=== PATIENT | male | born 1990 | race Caucasian/White ===

== ENCOUNTER 2022-02-28 13:05 | Emergency (ER) | payer OTHER, SELFPAY ==
[2022-02-28 13:40] VITALS: BP 149/87; PULSE 100; RESP 18; TEMP 37.1; O2SAT 99
--- NOTE | 2022-03-01 16:38 | ED.GENADULT ---
HPI - General Adult General Chief complaint: Back Pain/Injury Stated complaint: low back pain History of Present Illness HPI narrative: Patient is a 32-year-old male who presents to the [facility] via POV for evaluation of left mid back pain that is radiating to left testicle that began after bending over lifting 25 pound objects while at work on Wednesday, February 23, 2022. Ibuprofen and rest provides minimal relief. Pain worsens with bending over. Related Data Allergies Allergy/AdvReac Type Severity Reaction Status Date / Time No Known Allergies Allergy Verified 02/28/22 15:27 Review of Systems Review of Systems: Denies injury. Pertinent negatives fever, chills, sweats, change in appetite, poor p.o. intake, malaise, headache, stiffness, spasms, abdominal pain, nausea, vomiting, diarrhea, constipation, dysuria, urinary frequency/urgency, hematuria, urinary retention, flank pain, skin color changes, penile discharge, penile ulcers, prostate problems, bladder/bowel incontinence, skin color changes, deformity, numbness, tingling, loss of sensation, decreased ROM, difficulty with ambulation/coordination, chest pain, heart palpitations/murmurs, and sob. [facility] Past Medical History Medical History Patient denies significant medical history Traumatic hematoma of testicle Social History Social History Smoking status: Never smoker Comments I have reviewed and agree with the patient's past medical, surgical, social, and family hx as documented by the RN. There is no relevant family history pertinent to the presenting complaint. Exam Narrative: GENERAL: Well-appearing, well-nourished, and in no acute distress. HEAD: Normocephalic, atraumatic. NECK: Supple. No lymphadenopathy or nuchal rigidity. No evidence of pain, decreased ROM, or deformity. CHEST: Lung sounds are clear to auscultation in bilateral lung mccarthy. No respiratory distress. HEART: Regular rate and rhythm. No murmur heard. Normal peripheral pulses. ABDOMEN: Soft, nontender, nondistended, normal active bowel sounds in all quadrants. No guarding. No rebound tenderness. No pulsatile or palpable abdominal mass(es). No CVAT : Left testicle is moderately edematous and mildly painful. EXTREMITIES: Normal range of motion. No edema. BACK: Full ROM. Mild swelling and pain noted to left mid back. No evidence of deformity, mass, spinal tenderness, or swelling. Bilateral SLR tests negative. Normal gait. SKIN: Warm, dry, no rash. No skin color changes. Excellent turgor. NEURO: No focal deficits. Alert and oriented x3. Course Course Emergency Course: The patient/guardian displays good decision-making capability and, despite a detailed discussion of alternatives, benefits, risks, and consequences and agrees to a higher level of care to ER although refuses EMS transport to ER. Will transport via POV. Level of Care: Express Care Visit Vital Signs Vital signs: Vital Signs Temperature 98.8 F 02/28/22 13:40 Pulse Rate 100 02/28/22 13:40 Respiratory Rate 18 02/28/22 13:40 Blood Pressure 149/87 H 02/28/22 13:40 Pulse Oximetry 99 02/28/22 13:40 Oxygen Delivery Room Air 02/28/22 13:40 Temperature 98.8 F 02/28/22 13:40 Pulse Rate 100 02/28/22 13:40 Respiratory Rate 18 02/28/22 13:40 Blood Pressure 149/87 H 02/28/22 13:40 Pulse Oximetry 99 02/28/22 13:40 Oxygen Delivery Room Air 02/28/22 13:40 Transfer Transfered to: [place] Transportation: Other (Privately owned vehicle) Transfer rationale: Higher level care?rule out testicular trauma Accepting physician: LISS Velasquez Transfer comments: All questions answered. Patient stable at time of departure. Medical Decision Making Vital Signs Vital Signs: Vital Signs Temperature 98.8 F 02/28/22 13:40 Pulse Rate 100 02/28/22 13:40 Respiratory Rate 18 0
== END 2022-02-28 14:40 | disposition short-term general hospital (02) ==
PROVIDERS: Emergency Provider Nurse Practitioner Family
DX: E29.9 Testicular dysfunction, unspecified (principal)
CPT/HCPCS: 99212; G0463

== ENCOUNTER 2022-02-28 15:00 | Emergency (ER) | payer OTHER, MEDICAID, SELFPAY ==
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
[2022-02-28 15:23] VITALS: BP 140/90; PULSE 89; RESP 16; TEMP 36.4; O2SAT 99
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
--- NOTE | 2022-02-28 16:36 | PC.NURSE ---
pt shares he is also experiencing L sided lower back pain that he first noticed at work but worsened after he fell down the stairs a few days ago. the area is tender upon palpation.
[2022-02-28 16:46] LABS: Basophils Percent Auto 0.2 % (0.2-1.2); Eosinophils Absolute Auto 0.1 K/mm3 (0-0.3); Eosinophils Percent Auto 1.8 % (0-4.4); Hematocrit 45.8 % (42.0-52.0); Hemoglobin 15.8 g/dL (14.0-18.0); Immature Granulocyte Absolute 0.02 K/mm3 (0.00-0.031); Immature Granulocyte Percent A 0.3 % (0-0.5); Lymphocytes Percent Auto 26.2 % (18.3-44.2); Mean Corpuscular HGB Conc 34.5 g/dl (32-36); Mean Corpuscular Hemoglobin 31.9 pg (26-34); Mean Corpuscular Volume 92.3 fl (80-100); Mean Platelet Volume 10.4 fl (7.4-10.4); Monocytes Absolute Auto 0.5 K/mm3 (0.1-0.6); Monocytes Percent Auto 7.9 % (2.6-8.5); Neutrophils Absolute Auto 4.1 K/mm3 (1.3-6.7); Neutrophils Percent Auto 63.6 % (45.5-73.1); Platelet Count Result 174 k/mm3 (150-375); Red Blood Count 4.96 M/mm3 (4.6-6.20); White Blood Count 6.5 K/mm3 (4.5-10.0)
[2022-02-28 16:55] LABS: Alanine Aminotransferase 58 U/L (6-50); Albumin Level 4.8 g/dL (3.5-5.1); Alkaline Phosphatase 61 U/L (38-126); Anion Gap 11 mmol/L (8-16); Aspartate Amino Transferase 69 U/L (17-59); Blood Urea Nitrogen 6 mg/dL (9-20); Calcium 9.4 mg/dL (8.4-10.2); Carbon Dioxide 28 mmol/L (22-30); Chloride 102 mmol/L (98-107); Estimated CRCL calculation 111 ml/min; Estimated Glomerular Filt Rate > 60; Glucose 102 mg/dL (65-110); Sodium 141 mmol/L (137-145)
[2022-02-28 17:11] LABS: Appearance Urine Clear (Clear); Bilirubin Urine Negative (Negative); Blood Urine Negative (Negative); Color Urine Yellow (Yellow); Glucose Urine UA Negative (Negative); Ketones Urine Negative (Negative); Leukocyte Esterase Ur Negative LEU/UL (Negative); Nitrate Urine Negative (Negative); Protein Urine Negative (Negative); pH Urine 7.5 (5.0-9.0)
[2022-02-28 17:12] LABS: Add Urine Microscopic? NO
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
[2022-02-28 17:49] VITALS: BP 135/84; PULSE 82; RESP 16; O2SAT 100
== END 2022-02-28 17:51 | disposition home or self-care (01) ==
PROVIDERS: Emergency Provider Emergency Medicine
DX: S30.22XA Contusion of scrotum and testes, initial encounter (principal); W10.9XXA Fall (on) (from) unspecified stairs and steps, initial encounter
CPT/HCPCS: 36415; 74177; 76870; 80053; 81003; 85025; 93976; 99284; Q9967

== ENCOUNTER 2023-04-16 17:42 | Emergency (ER) | payer OTHER, SELFPAY ==
--- NOTE | ~2023-04-16 | XR_ITS ---
XR knee LT min 4V DATE: 04/16/2023 19:53 INDICATION: Fall. Left knee injury TECHNIQUE: 4 views COMPARISON: None FINDINGS: No fracture or dislocation or joint effusion. No periosteal reaction or bone destruction. N o radiopaque interarticular loose body or chondral calcinosis. Joint spaces are relatively preserved. No radiopaque soft tissue foreign body or subcutaneous emphysema is detected. IMPRESSION: Negative Reviewed, dictated and finalized at location A. IMPRESSION: Negative
--- NOTE | ~2023-04-16 | XR_ITS ---
XR hand RT min 3V DATE: 04/16/2023 19:53 INDICATION: Fall into glass door TECHNIQUE: 3 views COMPARISON: None FINDINGS: No fracture or dislocation, periosteal reaction or bone destruction. No radiopaque soft tis dhruv foreign body or subcutaneous emphysema. IMPRESSION: Negative Reviewed, dictated and finalized at location A. IMPRESSION: Negative
--- NOTE | ~2023-04-16 | CT_ITS ---
EXAMINATION: CT brain wo con DATE: 04/16/2023 19:31 INDICATION: Fall. Head injury. TECHNIQUE: Computed tomography (CT) of the head was performed without intravenous contrast. The mA wa s adjusted according to patient size. Iterative reconstruction technique was employed. Exam dose: 68 1.00 mGy-cm total exam DLP. COMPARISON: None FINDINGS: No intracranial mass lesion or hemorrhage or cerebrovascular accident. No midline shift or mass effect. Normal ventricular size. No subdural or epidural hematoma. There is patchy opacification of left ethmoid air cells. The mastoid air cells are well-developed and aerated. No fracture or bone destruction of the cranial vault. IMPRESSION: No skull fracture or acute intracranial finding Reviewed, dictated and finalized at [facility]. Reviewed, dictated and finalized at location A.
--- NOTE | ~2023-04-16 | XR_ITS ---
XR forearm RT 2V DATE: 04/16/2023 19:53 INDICATION: Fall into glass door TECHNIQUE: AP and lateral views of right forearm COMPARISON: None FINDINGS: Mild likely degenerative spurring of the radial head. If there is any concern for possible right elbow fracture, dedicated 4 view right elbow radiographic examination is recommended. Slight dorsal olecranon process spurring. There is mild spurring at the medial aspect of the elbow colleen int. No fracture or dislocation, periosteal reaction or bone destruction, radiopaque soft tissue foreign b zina or subcutaneous emphysema is detected. IMPRESSION: Right elbow osteoarthritis Slight dorsal olecranon process spur Reviewed, dictated and finalized at location A.
--- NOTE | ~2023-04-16 | XR_ITS ---
XR hand LT min 3V DATE: 04/16/2023 19:53 INDICATION: Fell into glass door TECHNIQUE: 3 views COMPARISON: None FINDINGS: No fracture or dislocation, periosteal reaction or bone destruction. Joint spaces are prese rved. No erosive change or chondrocalcinosis. No radiopaque foreign body or subcutaneous emphysema. IMPRESSION: Negative Reviewed, dictated and finalized at location A. IMPRESSION: Negative
--- NOTE | ~2023-04-16 | XR_ITS ---
XR forearm LT 2V DATE: 04/16/2023 19:53 INDICATION: Fell into glass door TECHNIQUE: AP and lateral views of left forearm COMPARISON: None FINDINGS: No fracture or dislocation, periosteal reaction or bone destruction. Normal alignment at th e elbow and wrist joints. No radiopaque soft tissue foreign body or subcutaneous emphysema. IMPRESSION: Negative Reviewed, dictated and finalized at location A. IMPRESSION: Negative
[2023-04-16 17:51] VITALS: BP 175/89; PULSE 109; RESP 17; TEMP 37.1; O2SAT 94
--- NOTE | 2023-04-16 19:05 | ED.WOUNDLAC ---
HPI - Wound/Laceration General Chief Complaint: Wound/Laceration Stated Complaint: fell through back door- lac to R hand Time Seen by Provider: 04/16/23 17:58 Source: patient Mode of arrival: ambulatory Limitations: no limitations History of Present Illness HPI narrative: This is a 33 year old male that presents to the ER for lacerations. Reports he was walking down the steps and tripped. Reports falling through a window. He did hit his head. He did not lose consciousness. Reports several lacerations to the hands, forearms, and left knee. He is not up to date on tetanus. Denies vision changes, vomiting, numbness or weakness. Related Data Allergies Allergy/AdvReac Type Severity Reaction Status Date / Time No Known Allergies Allergy Verified 04/16/23 18:28 Review of Systems Review of Systems: CONSTITUTIONAL: Denies fever EYES: Denies visual changes GASTROINTESTINAL: Denies vomiting NEUROLOGIC: Denies numbness, or weakness. All systems reviewed & are unremarkable except as noted in HPI and below PMFSH Past Medical History Medical History Patient denies significant medical history Traumatic hematoma of testicle Social History Social History Smoking status: Never smoker Exam Narrative: GENERAL: Well-appearing, well-nourished, and in no acute distress. HEAD: Normocephalic, atraumatic. EYES: PERRLA and EOMI. ENT: Nares clear, no rhinorrhea or epistaxis. Mucous membranes moist. Oropharynx without tonsillar hypertrophy exudate or other lesions. Bilateral TMs pearly [place] non-bulging NECK: Supple. No adenopathy or masses. No midline spinal tenderness CHEST: Clear to auscultation. No respiratory distress. No wheezes rales or rhonchi HEART: Regular rate and rhythm. No murmur heard. Normal peripheral pulses. EXTREMITIES: Normal range of motion. No edema or obvious deformity. Right hand palmar surface with 3cm linear laceration into subcutaneous tissue. Left knee with 2.5cm linear laceration into subcutaneous tissue. Strength equal in bilateral upper and lower extremities (5/5) SKIN: Warm, dry, no rash. Several superficial abrasions NEURO: No focal deficits. Alert and oriented x3. CN II-XII grossly intact PSYCH: Normal mood and affect Course Course Emergency Course: Patient educated on wound care Vital Signs Vital signs: Vital Signs Temperature 98.7 F 04/16/23 17:51 Pulse Rate 109 H 04/16/23 17:51 Respiratory Rate 17 04/16/23 17:51 Blood Pressure 175/89 H 04/16/23 17:51 Pulse Oximetry 94 04/16/23 17:51 Oxygen Delivery Room Air 04/16/23 17:51 Temperature 98.6 F 04/16/23 19:16 Pulse Rate 95 04/16/23 19:16 Respiratory Rate 16 04/16/23 19:16 Blood Pressure 165/97 H 04/16/23 19:16 Pulse Oximetry 98 04/16/23 19:16 Oxygen Delivery Room Air 04/16/23 17:51 Procedures Laceration Laceration 1: Date: 04/16/23 Time: 22:17 Site: hand Side (If applicable): right Size (cm): 3 Description: irregular Depth: simple, single layer Local Anesthetic: lidocaine 1% and with epi Amount of anesthesia used (mL): 3 Pre-repair: wound explored and irrigated ====== Skin Level ====== Skin layer closed with: nylon Size (cm): 4-0 Number of sutures: 6 Technique: simple, interrupted ====== Subcutaneous Layer ====== ====== Muscle Layer ====== ====== Tendon Layer ====== Laceration 2: Date: 04/16/23 Time: 22:17 Site: lower extremity Side (If applicable): left Size (cm): 2.5 Description: linear Depth: simple, single layer Local Anesthetic: lidocaine 1% and with epi Amount of anesthesia used (mL): 2 Pre-repair: wound explored and irrigated ====== Skin Level ====== Skin layer closed with: ny
[2023-04-16] MEDS: TETANUS,DIPHTHERIA,AC PERTUSSIS ADULT (0.5 ML) BOOSTRIX IM (19:13)
[2023-04-16 19:16] VITALS: BP 165/97; PULSE 95; RESP 16; TEMP 37; O2SAT 98
== END 2023-04-16 22:36 | disposition home or self-care (01) ==
PROVIDERS: Emergency Provider Physician Assistant
DX: S61.411A Laceration without foreign body of right hand, initial encounter (principal); S81.012A Laceration without foreign body, left knee, initial encounter; S09.90XA Unspecified injury of head, initial encounter; Z23 Encounter for immunization; M19.021 Primary osteoarthritis, right elbow; W10.9XXA Fall (on) (from) unspecified stairs and steps, initial encounter; W13.4XXA Fall from, out of or through window, initial encounter
CPT/HCPCS: 12002; 70450; 73090; 73130; 73564; 90471; 90715; 99284

== ENCOUNTER 2023-04-28 17:22 | Emergency (ER) | payer OTHER, SELFPAY ==
[2023-04-28] VITALS (22 sets, daily range): BP systolic 126–159; BP diastolic 57–108; PULSE 86–128; RESP 17–26; TEMP 36.9; O2SAT 90–98
--- NOTE | ~2023-04-28 | US_ITS ---
EXAMINATION: US right upper quadrant DATE: 04/28/2023 20:20 INDICATION: Epigastric abdominal pain. Abnormal liver function tests. TECHNIQUE: Multiple grayscale and Doppler ultrasound images of the abdomen were obtained. COMPARISON: CT abdomen and pelvis 02/28/22 FINDINGS: The visualized portions of the head and body of the pancreas are normal. There is diffuse h epatic steatosis. The gallbladder is normal in size. No gallstones or gallbladder wall thickening. Th ere is no sonographic Perez sign. The common duct is normal and measures 4 mm. IMPRESSION: 1. Diffuse hepatic steatosis. Reviewed, dictated and finalized at location E.
--- NOTE | ~2023-04-28 | XR_ITS ---
EXAMINATION: XR thoracic spine 3V DATE: 04/28/2023 18:13 INDICATION: Mid back pain. Fall. TECHNIQUE: 3 views of thoracic spine on 4 radiographs were obtained. COMPARISON: None. FINDINGS: There is 10 degrees dextroscoliosis of thoracolumbar spine. Vertebral body heights and inte rvertebral disc heights are normal. IMPRESSION: 1. Thoracolumbar dextroscoliosis. Reviewed, dictated and finalized at location E.
--- NOTE | 2023-04-28 17:45 | ED.WOUNDLAC ---
HPI - Wound/Laceration General Chief Complaint: Wound/Laceration <eBtte Donnelly PA-C - Last Filed: 04/28/23 17:51> Stated Complaint: sutures to wound popped open <ALBERT Acosta Last Filed: 04/28/23 17:51> Time Seen by Provider: 04/28/23 17:32 <ALBERT Acosta Last Filed: 04/28/23 17:51> Source: patient <ALBERT Acosta Last Filed: 04/28/23 17:51> Mode of arrival: ambulatory <ALBERT Acosta Last Filed: 04/28/23 17:51> Limitations: no limitations <ALBERT Acosta Last Filed: 04/28/23 17:51> History of Present Illness HPI narrative: Patient is a 33-year-old male who presents ED with multiple complaints. Patient reports he was seen in the ED here on 04/16 after falling through a glass door. He sustained several lacerations. He had a laceration to his right palm that he reports has not healed well. He went to his primary care doctor today to have the stitches removed and was referred here as the wound appears to be slightly dehisced. Patient did pop one of his stitches on his way here. Patient reports he has been cleaning the wound. He was prescribed Keflex after his last ED visit but did finish this. Patient also reports having mid back pain from the fall which he states was not evaluated at his last ED visit. He also reports having recent GI symptoms, abdominal pain, nausea, vomiting. He states his has had similar symptoms. His primary wanted him to have numerous blood testing done today. Patient also presented with a urinalysis that showed nitrite positive urine. He denies dysuria. Denies fever. <ALBERT Acosta Last Filed: 04/28/23 17:51> Related Data Allergies/Adverse Reactions: Allergies Allergy/AdvReac Type Severity Reaction Status Date / Time No Known Allergies Allergy Verified 04/28/23 17:29 <ALBERT Acosta Last Filed: 04/28/23 17:51> Review of Systems Review of Systems: CONSTITUTIONAL: Denies fever, chills, or sweats. CARDIOVASCULAR: Denies chest pain. RESPIRATORY: Denies dyspnea. GASTROINTESTINAL: See HPI. GENITOURINARY: See HPI. SKIN: See HPI. MUSCULOSKELETAL: See HPI. NEUROLOGIC: Denies headache, numbness, or weakness.\ <Bette Donnelly PA-C - Last Filed: 04/28/23 17:51> CONSTITUTIONAL: Denies fever, chills, or sweats. CARDIOVASCULAR: Denies chest pain. RESPIRATORY: Denies dyspnea. GASTROINTESTINAL: See HPI. GENITOURINARY: See HPI. SKIN: See HPI. MUSCULOSKELETAL: See HPI. NEUROLOGIC: Denies headache, numbness, or weakness. <Johanny Grey PA-C - Last Filed: 04/28/23 20:59> All systems reviewed & are unremarkable except as noted in HPI and below <Bette Donnelly PA-C - Last Filed: 04/28/23 17:51> [facility] Past Medical History Medical History: Medical History Patient denies significant medical history Traumatic hematoma of testicle <Bette Donnelly PA-C - Last Filed: 04/28/23 17:51> Social History Social History: Social History Smoking status: Never smoker <Bette Donnelly PA-C - Last Filed: 04/28/23 17:51> Exam Narrative: GENERAL: Well appearing, obese with BMI of 37.0, non-toxic, in no acute distress. HEAD: Normocephalic, atraumatic. NECK: Supple. No adenopathy, no masses. RESPIRATORY: Airway patent, respirations nonlabored. Clear to auscultation bilaterally, no rales, rhonchi, wheezing. CARDIOVASCULAR: Tachycardic with regular rhythm without murmurs, rubs, or gallops. Peripheral pulses 2+ and equal bilaterally. ABDOMINAL: Soft, no significant tenderness throughout abdomen, nondistended, no hepatosplenomegaly. Normoactive BS. MUSCULOSKELETAL: Moves all extremities. Strength/ROM intact without gross deformities. SKIN: Warm, dry, flushed appearing. No rashes. Large laceration to p
[2023-04-28 18:03] LABS: Eosinophils Percent Auto 0.4 % (0-4.4); Hemoglobin 15.7 g/dL (14.0-18.0); Immature Granulocyte Absolute 0.03 K/mm3 (0.00-0.031); Immature Granulocyte Percent A 0.5 % (0-0.5); Immature Platelet Fraction Pct 5.8 % (0.9-11.2); Lymphocytes Absolute Auto 0.75 K/mm3 (0.9-3.2); Lymphocytes Percent Auto 13.3 % (18.3-44.2); Mean Corpuscular HGB Conc 35.7 g/dl (32-36); Mean Corpuscular Hemoglobin 33.9 pg (26-34); Mean Platelet Volume 10.6 fl (7.4-10.4); Monocytes Absolute Auto 0.5 K/mm3 (0.1-0.6); Monocytes Percent Auto 8.3 % (2.6-8.5); Neutrophils Absolute Auto 4.4 K/mm3 (1.3-6.7); Neutrophils Percent Auto 77.5 % (45.5-73.1); Platelet Count Result 146 k/mm3 (150-375); Red Blood Count 4.63 M/mm3 (4.6-6.20); Red Cell Distribution Width 12.5 % (11.5-14.5); White Blood Count 5.7 K/mm3 (4.5-10.0)
[2023-04-28 18:04] LABS: Appearance Urine Cloudy (Clear); Bacteria Urine None Seen /hpf; Bilirubin Urine 1+ (Negative); Blood Urine Negative (Negative); Color Urine Dark Yellow (Yellow); Glucose Urine UA Negative (Negative); Ketones Urine Trace mg/dL (Negative); Leukocyte Esterase Ur Negative LEU/UL (Negative); Nitrate Urine Negative (Negative); Non Pathogenic Casts 0-2; Protein Urine 1+ mg/dL (Negative); RBC Urine 0-2 /hpf (0-2); Squamous Epithelial Cell Urine None seen /hpf (Few); WBC Urine 0-5 /hpf; pH Urine 5.5 (5.0-9.0)
[2023-04-28 18:09] LABS: Specific Grav Ur 1.038 (1.001-1.035)
[2023-04-28 18:10] LABS: Add Urine Microscopic? YES
[2023-04-28 18:11] LABS: Alanine Aminotransferase 150 U/L (6-50); Albumin Level 4.7 g/dL (3.5-5.1); Alkaline Phosphatase 66 U/L (38-126); Anion Gap 9 mmol/L (8-16); Aspartate Amino Transferase 108 U/L (17-59); Bilirubin,Total 1.8 mg/dL (0.2-1.3); Blood Urea Nitrogen 12 mg/dL (9-20); Calcium 8.9 mg/dL (8.4-10.2); Carbon Dioxide 24 mmol/L (22-30); Chloride 104 mmol/L (98-107); Estimated CRCL calculation 104 ml/min; Estimated Glomerular Filt Rate > 60; Glucose 112 mg/dL (65-110); Potassium 3.5 mmol/L (3.4-5.0); Sodium 137 mmol/L (137-145)
--- NOTE | 2023-04-28 18:27 | ECG_ITS ---
Measurements Intervals [place] Rate: 104 P: 31 CA: 152 QRS: 31 QRSD: 90 T: 1 QT: 320 QTc: 421 Interpretive Statements SINUS TACHYCARDIA ABNORMAL RHYTHM ECG NO PREVIOUS ECG AVAILABLE FOR COMPARISON Electronically Signed On 04-28-2023 18:53:35 CDT by Beckie Degroot M.D.
[2023-04-28 18:29] LABS: Lipase 91 U/L (23-300)
[2023-04-28] MEDS: SODIUM CHLORIDE 0.9% IV 1,000 ML 999 ML IV CONT (18:53)
[2023-04-28] MEDS: PANTOPRAZOLE SODIUM IV 40 MG VIAL IV PUSH (18:53)
[2023-04-28] MEDS: ONDANSETRON INJ 4 MG/2 ML VIAL IV PUSH (18:53)
[2023-04-28 19:44] LABS: Influenza A QL RT-PCR Negative (Negative); Influenza B QL RT-PCR Negative (Negative); SARS-CoV-2 RNA PCR Negative (Negative)
== END 2023-04-28 21:12 | disposition home or self-care (01) ==
PROVIDERS: Physician Assistant; Emergency Provider Physician Assistant; PCP Emergency Medicine
DX: T81.33XA Disruption of traumatic injury wound repair, initial encounter (principal); R10.13 Epigastric pain; M54.6 Pain in thoracic spine; R11.2 Nausea with vomiting, unspecified; Z20.822 Contact with and (suspected) exposure to COVID-19; K76.0 Fatty (change of) liver, not elsewhere classified
CPT/HCPCS: 15853; 36415; 72072; 76705; 80053; 81001; 83690; 85025; 85055; 87636; 93005; 96361; 96374; 96375; 99284; C9113; J2405; J7030

== ENCOUNTER 2024-08-13 11:53 | Emergency (ER) | payer OTHER, BC, SELFPAY ==
--- NOTE | ~2024-08-13 | XR_ITS ---
EXAMINATION: XR wrist LT min 3V DATE: 08/13/2024 12:23 INDICATION: Left wrist injury. TECHNIQUE: 4 views of left wrist were obtained. COMPARISON: Left hand radiographs 04/16/2023 FINDINGS: Alignment is normal. No fracture. There is mild osteoarthritis of first carpometacarpal michaela nt. IMPRESSION: 1. Mild osteoarthritis of first carpometacarpal joint. Reviewed, dictated and finalized at location A. R [employer]
[2024-08-13 12:14] VITALS: BP 144/99; PULSE 98; RESP 18; TEMP 36.7; O2SAT 97
--- NOTE | 2024-08-13 12:33 | ED_ITS ---
HPI - Extremity Injury (Upper) General Chief Complaint: Extremity Injury, Upper Stated Complaint: lt wrist injury Time Seen by Provider: 08/13/24 11:55 Source: patient Mode of arrival: ambulatory Limitations: no limitations History of Present Illness HPI narrative: Patient is a 34-year-old male who presents with left wrist pain for 4 days after slipping on icy cardboard and landing with arm outstretched. Patient states he feels clicking motion when making hand shaking movement. Patient still able to flex and ache stent wrist normally. Denies any numbness, tingling or weakness to fingers. Has been using Omar wrap been taking [id number] pain medication. Related Data Home Medications ?Medication ?Instructions ?Recorded ?Confirmed ?Last Taken ?Type No Home Medications 08/13/24 08/13/24 Unknown History Allergies Allergy/AdvReac Type Severity Reaction Status Date / Time No Known Allergies Allergy Verified 08/13/24 12:27 Review of Systems Review of Systems: All systems reviewed & are unremarkable except as noted in HPI and below Constitutional: Constitutional: Denies body ache(s), Denies chills, Denies fatigue, Denies fever(s), Denies headache(s), Denies malaise and Denies weakness Eyes: Eyes: Denies blurry vision, Denies irritation and Denies loss of vision ENT: Denies otalgia, Denies headache(s), Denies nasal discharge, Denies sinus pain and Denies sore throat Cardiovascular: Cardiovascular: Denies chest pain, Denies irregular heart rhythm and Denies dyspnea Respiratory: Respiratory: Denies dyspnea Gastrointestinal: Gastrointestinal: Denies abdominal pain, Denies melena, Denies hematochezia, Denies diarrhea, Denies nausea and Denies vomiting Musculoskeletal: Musculoskeletal: Denies back pain, Denies myalgias and Reports arthralgias Integumentary/Breasts: Skin/Breast: Denies pruritus and Denies rash Neurologic: Denies headache(s), Denies loss of vision and Denies weakness Psychiatric: Psychiatric: Reports no additional psychiatric complaints Endocrine: Endocrine: Denies fatigue PMFSH Past Medical History Medical History Traumatic hematoma of testicle Patient denies significant medical history Social History Social History Smoking status: Never smoker Comments At time of signature, agree with nursing past medical, surgical, social and family history. There is no relevant family history pertinent to the presenting complaint. Exam Const: General: cooperative, healthy appearing, comfortable, no acute distress and well nourished Nutritional Appearance: well nourished Orientation/consciousness: patient oriented x3 Limitations: no limitations HENMT: Head: normal to inspection, normocephalic and atraumatic Ears: hearing grossly normal bilaterally and external ears normal Face/Nose/Sinus: Normal external nose present, normal facial exam and face symmetric Face and sinus: normal facial exam and face symmetric Mouth: Yes lip normal Eyes: General: appearance normal, both eyes and all related structures Alignment and Position: alignment normal and position normal Periorbital: periorbital findings normal Eyelids: eyelids normal Pupils: Equal, round and reactive pupils present EOM: EOMs intact bilaterally Neck: Neck: normal visual inspection, full ROM and supple Chest: Chest palpation & inspection: normal inspection of the chest Resp: Effort & Inspection: normal respiratory effort and able to speak in complete sentences Auscultation: clear to auscultation bilaterally Cardio: Rate: regular rate Rhythm: regular rhythm Heart sounds: S1 normal heart sound present and S2 normal heart sound present GI: Inspection: normal to inspection Skin: General skin exam: normal color and no rashes or lesions noted Neuro: General: patient oriented x3 and moves all extremities Cranial nerves: Yes Equal, round and reactive pupils present Speech: normal speech Gait exam (Neuro): Normal gait present Extrem: General: normal to inspection, full ROM and no edema Left upper extremity: wrist normal to inspection, tenderness of the distal radius; not of the anatomic snuffbox, abnormal ROM pain with active ROM with ABduction and with ADduction, normal vascular exam and radial pulse present; no swelling, no unusual warmth, no ecchymosis and no deformity Psych: Appearance: grossly normal and well kempt Mental Status: mental status grossly normal Speech and movement: Normal speech and movement present Affect: normal affect Attitude: cooperative Thought process: Normal thought process present Course Course Emergency Course: Patient is aware of diagnosis, understands and agrees to treatment plan. Anticipatory guidance given. Patient agrees to follow-up as directed and is aware of reasons to seek care at the emergency department. Portions of this record may have been created with voice recognition software Level of Care: Express Care Visit Vital Signs Vital signs: Vital Signs Temperature 36.7 C 08/13/24 12:14 Pulse Rate 98 08/13/24 12:14 Respiratory Rate 18 08/13/24 12:14 Blood Pressure 144/99 H 08/13/24 12:14 Pulse Oximetry 97 08/13/24 12:14 Oxygen Delivery Room Air 08/13/24 12:14 Temperature 36.7 C 08/13/24 12:14 Pulse Rate 98 08/13/24 12:14 Respiratory Rate 18 08/13/24 12:14 Blood Pressure 144/99 H 08/13/24 12:14 Pulse Oximetry 97 08/13/24 12:14 Oxygen Delivery Room Air 08/13/24 12:14 Reviewed MDM - Extremity Injury (Upper) MDM Narrative Medical decision making narrative: Pt well hydrated appearing, in no respiratory distress, hemodynamically stable. Recommend supportive care. The patient is stable at time of discharge the clinical impression was discussed and the patient was given the opportunity to ask questions, which were addressed as completely as possible given the information available at present. Anticipatory guidance and return to care precautions were discussed and the importance of primary care follow-up was stressed and encouraged. The patient voiced understanding of the plan, indications to return, and the need for follow-up. Exam findings show no acute concerns or changes Patient is appropriate for outpatient treatment and follow-up. Differential Diagnosis Differential diagnosis: Likely sprain and strain of wrist, fracture of wrist and fracture of hand Medical Records Attestation: I reviewed the patient's medical records. Imaging Data Radiologist's impression: EXAMINATION: XR wrist LT min 3V DATE: 08/13/2024 12:23 INDICATION: Left wrist injury. TECHNIQUE: 4 views of left wrist were obtained. COMPARISON: Left hand radiographs 04/16/2023 FINDINGS: Alignment is normal. No fracture. There is mild osteoarthritis of first carpometacarpal joint. IMPRESSION: 1. Mild osteoarthritis of first carpometacarpal joint. Discharge Plan Discharge Clinical Impression: Sprain and strain of wrist Patient Disposition: Home, Self-Care Condition: Stable Instructions: Wrist Sprain (ED) Additional Instructions: Xray showed no fracture. Minimize activities that aggravate the condition The RICE protocol. Follow the RICE protocol as soon as possible after your injury:. Ice should be immediately applied to keep the swelling down. It can be used for 20 to 30 minutes, three or four times daily. Do not apply ice directly to your skin. Compression dressings, bandages or omar-wraps will immobilize and support your injured wrist. Elevate your Wrist above the level of your heart as often as possible during the first 48 hours. Medication: Nonsteroidal anti-inflammatory drugs (NSAIDs) such as ibuprofen and naproxen can help control pain and swelling. Because they improve function by both reducing swelling and controlling pain, they are a better option for mild sprains than narcotic pain medicines. Please schedule a follow-up visit with your personal physician for further evaluation and treatment within 1week OR If your symptoms persist, change or worsen significantly before you can contact your personal physician then please, without delay, go to the emergency department for further evaluation. Your blood pressure was elevated above 120/80 today at Urgent Care. This puts you above the threshold for follow up visit with a primary care provider. High blood pressure does not usually cause any symptoms, however it may lead to k idney failure, stroke, heart disease just to name a few if untreated . Many people are anxious when seeing a provider or nurse. As a result, you are not diagnosed with hypertension at this time unless your blood pressure is persistently high at two office visits at least one week apart. Some things that can help lower blood pressure are lifestyle modifications, such as light exercise, decreased salt in diet, and weight loss. It is important to follow up with a PCP about this within 1 week. Patient Language: Ukrainian Prescriptions: No Action No Home Medications Follow-up/Referrals: UNKNOWN,DOCTOR [Primary Care Provider] - Laura Pires DO [Physician] - 3 Days ([facility] care) Stand Alone Forms: Work/School Release IP Time of Disposition: 12:49
--- OUTSIDE RECORDS SUMMARY | 2024-08-18 08:58 | XMS_ITS | Encounter Summary ---
Author Organization [facility] Address [address] [place] [address]. [place], [place] [id number] [place] [id number] Care Team Providers Care Senior Java Developer Name Role Phone None, Provider Primary Care Provider Unavaila ble Encounter Details Date Type Department Care Team (Late st Contact Info) Description 11/11/2017 Abstract [facility] CONVERSION [address] [place] [address] , Generic Conversion, Social History Tobacco Use Types Packs/Day Years Used Date Smoking Tobacco: Never Assessed Sex and Gender Information Value Date Recorded Sex Assigned at Not on file Legal Sex Male 10:22 PM [employer] Gender Identity Not on file Sexual Orientation Not on file documented as of this encounter Plan of Treatment Not on file documented as of this encounter Visit Diagnoses Not on filedocumented in this encounter Additional Health Concerns Infection Onset Date Last Indicated Resolved Time COVID-19 Rule Out 06/28/2024 06/28/2024 06/28/2024 2:13 PM [employer] documented as of this encounter Care Teams Senior Java Developer Relationship Specialty Start Date End Date None, Provider, PCP - General UNKNOWN PHYSICIAN SPECIALTY 04/17/23 documented as of this encounter
--- OUTSIDE RECORDS SUMMARY | 2024-08-18 08:58 | XMS_ITS | CONTINUITY OF CARE DOCUMENT ---
Author Name eagle guillermo Address Unknown Organization [facility] Address [address] [place] [address] Phone [phone] Care Team Providers Care Lgsw Name Role Phone Austin Felix MD Unavailable [phone] Austin Felix MD Unavailable [phone] INSURANCE PROVIDERS Payer name Policy type / Coverage type [place] red republican ID [employer] [facility] Medicaid [id number]
--- OUTSIDE RECORDS SUMMARY | 2024-08-18 08:58 | XMS_ITS | Clinical Summary ---
Author Organization [facility] Address [address] [place] [address]. 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 8 g 06/28/2024 Active Encounters Date Type Department Care Team Description 06/28/2024 11:38 AM SKID MAN - 06/28/2024 3:16 PM SKID MAN Emergency [facility] Emergency Room [address] [place] [address] Iva Liu MD Shortness Of Breath Discharge Disposition: Home or Self Care (Routine Discharge) 06/28/2024 Travel from Last 3 Months Social History Tobacco Use Types Packs/Day Years Used Date Smoking Tobacco: Never Smokeless Tobacco: Never Tobacco Cessation:Counseling Given: Not Answered Sex and Gender Information Value Date Recorded Sex Assigned at Not on file Legal Sex Male 10:22 PM SKID MAN Gender Identity Not on file Sexual Orientation Not on file Last Filed Vital Signs Vital Sign Reading Time Taken Comments Blood Pressure 167/133 06/28/2024 11:41 AM SKID MAN Pulse 128 06/28/2024 3:00 PM SKID MAN Temperature 36.6 ??C (97.8 ??F) 06/28/2024 3:00 PM CS T Respiratory Rate 29 06/28/2024 3:00 PM SKID MAN Oxygen Saturation 91% 06/28/2024 3:00 PM SKID MAN Inhaled Oxygen Concentration - - Weight 117.9 kg (260 lb) 06/28/2024 11:41 AM SKID MAN Height 180.3 cm (5' 11 ) 06/28/2024 11:41 AM SKID MAN Body Mass Index 36.26 06/28/2024 11:41 AM SKID MAN Plan of Treatment Health Maintenance Due Date Last Done Comments Annual Physical 1994 Hepatitis C 2009 Hepatitis B Vaccines (1 of 3 - 19+ 3-dose series) 2010 COVID-19 Vaccine ( - 2023-2 5 season) 2024 12/06/2020, 10/18/2020 Influenza Adult (#1) 2024 DTaP, Tdap and Td Vaccines ( 2 - Td or Tdap) 04/16/2033 04/16/2023 HPV Vaccines Aged Out No longer eligi ble based on patient's age to complete this topic Meningococcal Vaccine Aged Out No michelle darwin eligible based on patient's age to complete this topic Pneumococcal Vaccine: Pediatrics (0 to 5 Years) and At-Risk Patients (6 to 64 Years) Aged Out No longer eligible b ased on patient's age to complete this topic RSV Immunizations Under 20 Months Aged Out No longer eligible b ased on patient's age to complete this topic Procedures Procedure Name Priority Date/Time Associated Diagnosis Comments CTA CHEST PE PROTOCOL STAT 06/28/2024 2:09 PM SKID MAN LACTIC ACID W REFLEX (SEPSIS) STAT 06/28/2024 1:51 PM SKID MAN RESP SYNCYTIAL VIRUS STAT 06/28/2024 1:44 PM SKID MAN INFLUENZA A & B STAT 06/28/2024 1:44 PM SKID MAN CORONAVIRUS (COVID 19) STAT 1:44 PM SKID MAN XR CHEST PA+LAT STAT 06/28/2024 1:06 PM SKID MAN C-REACTIVE PROTEIN STAT 06/28/2024 12 :00 PM SKID MAN TROPONIN, QUANT STAT 06/28/2024 12:00 PM SKID MAN COMPREHENSIVE METABOLIC PANEL STAT 06/28/2024 12:00 PM SKID MAN D-DIMER, QUANTITATIVE STAT 06/28/2024 12:00 PM SKID MAN CBC W/DIFF AUTOMATED STAT 06/28/2024 12:00 PM SKID MAN ECG 12-LEAD Routine 06/28/2024 11:52 AM SKID MAN from Last 3 Months Results * CTA CHEST PE PROTOCOL (06/28/2024 2:09 PM SKID MAN) Anatomical Region Laterality Modality Chest Computed Tomogra phy 06/28/2024 2:44 PM SKID MAN Impressions 06/28/2024 2:50 PM SKID MAN Impression: 1. Limited opacification of the pulmonary arteries related to bolus timing, as well as respiratory motion artifact. This limits evaluation of the segmental and subsegmental pulmonary arteries. Within the limitation, no evidence of large central pulmonary embolus. No evidence of right heart strain. 2. No acute findings within the chest, within study limitations. 3. Left lower lobe 9 mm pulmonary nodule. Given the patient's age and lack of primary malignancy, this is favored to be benign in etiology. An optional follow-up CT chest can be performed in 1 year if clinically indicated. 4. Severe hepatic steatosis. Ordered By: IVA LIU Interpreted By: Abdullahi Romero MD, 06/28/2024 2:44 PM Narrative 06/28/2024 2:50 PM SKID MAN [facility] [address] [place] [address] Procedure: CTA Chest PE Protocol Comparison: None available. Indication: elevated d dimer, sob ?? Technique: ??CTA imaging of the chest was performed with intravenous contrast, per pulmonary embolism protocol. Iodinated contrast was used due to the indications for the examination, to improve disease detection and to further define anatomy. Coronal and sagittal reformatted images were generated and reviewed. 3-D maximum intensity projection (MIP) reconstructions were performed of the chest to potentially increase study sensitivity. A dose lowering technique was utilized for this procedure which may include but is not limited to dose reduction techniques, automated exposure control, and/or the use of iterative reconstruction in accordance with ALARA principle. Findings: - Thoracic Vessels: There is suboptimal opacification of the pulmonary artery related to bolus timing and respiratory motion artifact. This limits evaluation of the segmental and subsegmental pulmonary arteries. No evidence of large central pulmonary embolus. No evidence of right heart strain. ??The thoracic aorta and pulmonary arteries are normal caliber. - Chest wall and Thoracic Inlet: No masses or lymphadenopathy. ??Bilateral gynecomastia. - Mediastinum and Yamileth: No masses or lymphadenopathy. - Heart and Pericardium: Normal heart size. ??No pericardial effusion. - Lungs and Airways: Somewhat limited evaluation of the lung parenchyma secondary to respiratory motion artifact and study obtained in partial expiratory phase. 9 mm pulmonary nodule in the left lower lobe on series 8 image 100. Bibasilar subsegmental atelectasis. No consolidation.. - Pleura: No pleural effusions. - Upper Abdomen: No acute findings. Severe hepatic steatosis with focal fatty sparing along the gallbladder fossa. Duodenal diverticulum. - Musculoskeletal: ??No aggressive appearing osseous lesions. ? Procedure Note Abdullahi Romero MD - 06/28/2024 [facility] [address] [facility] [place] [address] Procedure: CTA Chest PE Protocol Comparison: None available. Indication: elevated d dimer, sob Technique: CTA imaging of the chest was performed with intravenouscontrast, per pulmonary embolism protocol. Iodinated contrast was used dueto the indications for the examination, to improve disease detection andto further define anatomy. Coronal and sagittal reformatted images weregenerated and reviewed. 3-D maximum intensity projection (MIP)reconstructions were performed of the chest to potentially increase studysensitivity. A dose lowering technique was utilized for this procedurewhich may include but is not limited to dose reduction techniques,automated exposure control, and/or the use of iterative reconstruction inaccordance with ALARA principle. Findings: - Thoracic Vessels: There is suboptimal opacification of the pulmonaryartery related to bolus timing and respiratory motion artifact. Thislimits evaluation of the segmental and subsegmental pulmonary arteries. Noevidence of large central pulmonary embolus. No evidence of right heartstrain. The thoracic aorta and pulmonary arteries are normal caliber. - Chest wall and Thoracic Inlet: No masses or lymphadenopathy. Bilateralgynecomastia. - Mediastinum and Yamileth: No masses or lymphadenopathy. - Heart and Pericardium: Normal heart size. No pericardial effusion. - Lungs and Airways: Somewhat limited evaluation of the lung parenchymasecondary to respiratory motion artifact and study obtained in partialexpiratory phase. 9 mm pulmonary nodule in the left lower lobe on series 8image 100. Bibasilar subsegmental atelectasis. No consolidation.. - Pleura: No pleural effusions. - Upper Abdomen: No acute findings. Severe hepatic steatosis with focalfatty sparing along the gallbladder fossa. Duodenal diverticulum. - Musculoskeletal: No aggressive appearing osseous lesions. Impression: 1. Limited opacification of the pulmonary arteries related to bolustiming, as well as respiratory motion artifact. This limits evaluation ofthe segmental and subsegmental pulmonary arteries. Within the limitation,no evidence of large central pulmonary embolus. No evidence of right heartstrain. 2. No acute findings within the chest, within study limitations. 3. Left lower lobe 9 mm pulmonary nodule. Given the patient's age and lackof primary malignancy, this is favored to be benign in etiology. Anoptional follow-up CT chest can be performed in 1 year if clinicallyindicated. 4. Severe hepatic steatosis. Ordered By: IVA LIU Interpreted By: Abdullahi Romero MD, 06/28/2024 2:44 PM Iva Liu MD CT Final Resul t * LACTIC ACID W REFLEX (SEPSIS) (06/28/2024 1:51 PM SKID MAN) LACTIC ACID VENOUS 1.0 0.4 - 2.0 MMOL/L 06/28/2024 2:19 PM SKID MAN [facility] 06/28/2024 1:51 PM SKID MAN Iva Liu MD LABORATORY Final Resul t Performing Organization Address City/[facility]/ZIP Co de Phone Number [facility] [address] [place] [address], [place] [phone] * CORONAVIRUS (COVID-19) MOLECULAR (06/28/2024 1:44 PM SKID MAN) CORONAVIRUS SARS COV 2 RNA NEGATIVE NEGATIVE 06/28/2024 2:13 PM SKID MAN [facility] Comment: NEGATIVE RESULTS DO NOT RULE OUT COVID 19 AND SHOULD NOT BE USED THE SOLE BASIS FOR TREATMENT OR PATIENT MANAGEMENT DECISIONS, INCLUDING INFECTION CONTROL DECISIONS. NEGATIVE RESULTS SHOULD BE CONSIDERED IN THE CONTEXT OF A PATIENT'S RECENT EXPOSURES, HISTORY AND THE PRESENCE OF CLINICAL SIGNS AND SYMPTOMS CONSISTENT WITH COVID 19. THE ID NOW COVID-19 2.0 TEST HAS BEEN AUTHORIZED BY THE FDA UNDER EAU FOR USE BY AUTHORIZED LABORATORIES. PERFORMED BY NUCLEIC ACID AMPLIFICATION FOR MOLECULAR QUALITATIVE DETECTION OF SARS-COV-2. SPECIMEN TYPE NASAL 06/28/2024 1:42 PM SKID MAN [facility] NASOPHARYNGEAL SWAB / Unknown 06/28/2024 1:44 PM SKID MAN us Iva Liu MD MICROBIOLOGY - [facility] Final Result [facility] [address] [place] [address], [place] [phone] * INFLUENZA A & B (06/28/2024 1:44 PM SKID MAN) SPECIMEN TYPE NASOPHARYNGEAL SWAB 06/28/2024 1:50 PM SKID MAN [facility] INFLUENZA A NEGATIVE NEGATIVE 06/28/2024 2:13 PM SKID MAN [facility] INFLUENZA B NEGATIVE NEGATIVE 06/28/2024 2:13 PM SKID MAN [facility] NASOPHARYNGEAL SWAB / Unknown 06/28/2024 1:44 PM SKID MAN us Iva Liu MD MICROBIOLOGY - [facility] Final Result Performing Organization Address City/[facility]/ZIP Co de Phone Number [facility] [address] [place] [address], [place] [phone] * RESP SYNCYTIAL VIRUS (06/28/2024 1:44 PM SKID MAN) SPECIMEN TYPE NASOPHARYNGEAL SWAB 06/28/2024 1:42 PM SKID MAN [facility] RAPID RSV NEGATIVE NEGATIVE 06/28/2024 2:13 PM SKID MAN [facility] NASOPHARYNGEAL SWAB / Unknown 06/28/2024 1:44 PM SKID MAN Iva Liu MD MICROBIOLOGY - [facility] Final Result Performing Organization Address [facility] Co de Phone Number [facility] [address] [place] [address], [place] [phone] * XR CHEST PA+LAT (06/28/2024 1:06 PM SKID MAN) Anatomical Region Laterality Modality Chest Radiographic Ofelia ging 06/28/2024 1:20 PM SKID MAN Impressions 06/28/2024 1:21 PM SKID MAN IMPRESSION: 1. No acute findings. Ordered By: IVA LIU Interpreted By: Aron Randolph MD, 06/28/2024 1:20 PM Narrative 06/28/2024 1:21 PM SKID MAN [facility] [address] [facility] [place] [address] Patient name: PAULA ROCHA Examination: Chest x-ray 2 view Exam time: 06/28/2024 1:00 PM Clinical history: 34 years Male. Cough and shortness of breath Comparison: None Technique: Frontal and lateral views of the chest were obtained. Findings: No parenchymal consolidation. No pneumothorax or pleural effusion. Normal heart size. Mediastinum is unremarkable. Vertebral body heights are normal. Procedure Note Aron Randolph MD - 06/28/2024 [facility] [address] [place] [address] Patient name: PAULA ROCHA Examination: Chest x-ray 2 view Exam time: 06/28/2024 1:00 PM Clinical history: 34 years Male. Cough and shortness of breath Comparison: None Technique: Frontal and lateral views of the chest were obtained. Findings: No parenchymal consolidation. No pneumothorax or pleuraleffusion. Normal heart size. Mediastinum is unremarkable. Vertebral bodyheights are normal. IMPRESSION: 1. No acute findings. Ordered By: IVA LIU Interpreted By: Aron Randolph MD, 06/28/2024 1:20 PM us Iva Liu MD GENERAL IMAGING Final Resul t * (ABNORMAL) COMPREHENSIVE METABOLIC PANEL (06/28/2024 12:00 PM SKID MAN) GLUCOSE 121(H) 70 - 99 MG/DL 06/28/2024 1:16 PM [facility] BUN 4(L) 7 - 18 MG/DL 06/28/2024 1:16 PM [facility] CREATININE S/P/B 1.05 0.7 - 1.3 MG/DL 06/28/2024 1:16 PM [facility] SODIUM S/P/B 143 136 - 145 MMOL/L 06/28/2024 1:16 PM [facility] POTASSIUM S/P/B 3.4(L) 3.5 - 5.1 MMOL/L 06/28/2024 1:16 PM [facility] CHLORIDE S/P/B 105 100 - 108 MMOL/L 06/28/2024 1:16 PM [facility] CO2 25.1 21 - 32 MMOL/L 06/28/2024 1:16 PM [facility] CALCIUM S/P/B 8.8 8.5 - 10.1 MG/DL 06/28/2024 1:16 PM [facility] BILIRUBIN TOTAL S/P/B 1.0 0.2 - 1.2 MG/DL 06/28/2024 1:16 PM [facility] TOTAL PROTEIN S/P/B 7.5 6.4 - 8.2 G/DL 06/28/2024 1:16 PM [facility] ALBUMIN S/P/B 3.6 3.4 - 5.0 G/DL 06/28/2024 1:16 PM [facility] AST 188(H) 15 - 37 U/L 06/28/2024 1:16 PM [facility] ALT 151(H) 16 - 60 U/L 06/28/2024 1:16 PM [facility] ALKALINE PHOSPHATASE S/P/B 85 50 - 136 U/L 06/28/2024 1:16 PM [facility] ANION GAP 12.9 5 - 15 MMOL/L 06/28/2024 1:16 PM [facility] BUN CREATININE RATIO 3.8(L) 6 - 26 06/28/2024 1:16 PM [facility] A/G RATIO 0.9(L) 1.0 - 2.0 RATIO 06/28/2024 1:16 PM [facility] GFR ESTIMATE >90 >90 ML/MIN/1.7 3 M2 06/28/2024 1:16 PM [facility] Comment: NOTE: eGFR is not calculated for patients <18 years of age. This is an estimated GFR calculation using the new CKD EPI creatinine equation without race and so does not require a correction factor for race. This estimated GFR should not be used for calculating drug doses. 06/28/2024 12:0 0 PM SKID MAN us Iva Liu MD LABORATORY Final Resul t Performing Organization Address City/[facility] Co de Phone Number [facility] [address] [place] [address], [place] [phone] * (ABNORMAL) D-DIMER, QUANTITATIVE (06/28/2024 12:00 PM SKID MAN) D-DIMER 546(H) 0 - 500 ng{FEU}/mL 06/28/2024 1:01 PM SKID MAN [facility] Comment: D-Dimer values less than or equal to 500 ng/mL FEU have a negative predictive value of >95% for exclusion of deep vein thrombosis and pulmonary embolism. In patients over 50 (who tend to have higher normal baseline D-Dimer values), recent studies suggest age-adjusted D-Dimer cutoff values (calculated as: age [years] x 10 ng/mL) result in equivalent outcomes and no additional false negative findings. 06/28/2024 12:0 0 PM SKID MAN us Iva Liu MD LABORATORY Final Resul t Performing Organization Address [facility] Co de Phone Number [facility] [address] [place] [address], [place] [phone] * (ABNORMAL) C-REACTIVE PROTEIN (06/28/2024 12:00 PM SKID MAN) C-REACTIVE PROTEIN 0.54(H) <0.29 mg/dL 06/28/2024 8:04 PM SKID MAN [facility] 06/28/2024 12:0 0 PM SKID MAN us Iva Liu MD LABORATORY Final Resul t Performing Organization Address City/[facility] Co de Phone Number [facility] [address] [place] [address], [place] [phone] * (ABNORMAL) CBC W/DIFF AUTOMATED (06/28/2024 12:00 PM SKID MAN) [facility] Signature WBC 7.94 4.4 - 11.0 x10'3/uL 06/28/2024 12:56 PM [facility] RBC 4.89 4.50 - 5.90 x10'6/uL 06/28/2024 12:56 PM [facility] HGB 17.0 14.0 - 17.5 G/DL 06/28/2024 12:56 PM [facility] HCT 47.0 41.5 - 50.4 % 06/28/2024 12:56 PM [facility] MCV 96.1(H) 80.0 - 96.0 FL 06/28/2024 12:56 PM [facility] MCH 34.8(H) 26.5 - 31.4 PG 06/28/2024 12:56 PM [facility] MCHC 36.2(H) 31.9 - 34.8 G/DL 06/28/2024 12:56 PM [facility] RDW 12.8 12.3 - 14.3 % 06/28/2024 12:56 PM [facility] PLT 195 151 - 353 x10'3/uL 06/28/2024 12:56 PM [facility] MPV 10.2 9.7 - 11.9 FL 06/28/2024 12:56 PM [facility] RBC MORPHOLOGY NORMAL 06/28/2024 12:56 PM [facility] PLT MORPH. NORMAL 06/28/2024 12:56 PM [facility] WBC MORPHOLOGY NORMAL 06/28/2024 12:56 PM SKID MAN [facility] LYMPHOCYTES % 25.8 15.8 - 45.0 % 06/28/2024 12:56 PM [facility] NEUTROPHILS % 64.4 42.1 - 71.9 % 06/28/2024 12:56 PM SKID MAN [facility] MONOCYTES % 8.6 5.7 - 12.5 % 06/28/2024 12:56 PM [facility] EOSINOPHILS 0.4 0.0 - 5.6 % 06/28/2024 12:56 PM SKID MAN [facility] BASOPHILS 0.4 0.0 - 1.3 % 06/28/2024 12:56 PM [facility] ABS. NEUTROPHILS 5.12 1.40 - 6.00 x10'3/uL 06/28/2024 12:56 PM [facility] IMMATURE GRANS % 0.4 0.0 - 0.5 % 06/28/2024 12:56 PM [facility] ABS. LYMPHOCYTES 2.05 0.80 - 4.70 x10'3/uL 06/28/2024 12:56 PM [facility] 06/28/2024 12:0 0 PM SKID MAN us Iva Liu MD LABORATORY Final Resul t [facility] [address] [place] [address], * TROPONIN, QUANT (06/28/2024 12:00 PM SKID MAN) TROPONIN I HIGH SENSITIVITY 5 0 - 75 ng/L 06/28/2024 1:20 PM SKID MAN [facility] Comment: HIGH DOSES OF BIOTIN, TROPONIN-SPECIFIC AUTOANTIBODIES, AND ANTIBODY THERAPY CONTAINING HAMA MAY INTERFERE WITH THIS TEST RESULT. CORRELATION TO CLINICAL HISTORY AND PRESENTATION RECOMMENDED. 06/28/2024 12:0 0 PM SKID MAN us Iva Liu MD LABORATORY Final Resul t [facility] [address] [place] [address], * ECG 12 lead (06/28/2024 11:52 AM SKID MAN) 06/28/2024 11:5 2 AM SKID MAN Narrative [facility] ([facility] RAD - 06/29/2024 9:15 AM SKID MAN [facility] ? Test Date: ?2024-06-28 Pat Name: ? PAULA ROCHA ? Department: ?? 85 ? Room: ? EXAM 404 Gender: ? Male ? 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 Requested By: IVA LIU Order Number: [id number] ? Regla BRAGG: ?? Valentino Gaytan ? Measurements Intervals ?[place] ? Rate: ? 128 ?P: ?50 [place]: ? 148 ?QRS: ?44 QRSD: ? 92 ? T: ?0 QT: ? 304 ? QTc: ?444 ? Interpretive Statements SINUS TACHYCARDIA ABNORMAL RHYTHM ECG No previous ECG available for comparison MAN Procedure Note Valentino Gaytan MD - 06/29/2024 [facility] Test Date: 2024-06-28 Pat Name: PAULA ROCHA Department: 85 Room: EXAM 404 Gender: Male Call Center Director: : 1990 Requested By: IVA LIU Order Number: [id number] Regla MD: Valentino Gaytan Measurements Intervals [place] Rate: 128 P: 50 [place]: 148 QRS: 44 QRSD: 92 T: 0 QT: 304 QTc: 444 Interpretive Statements SINUS TACHYCARDIA ABNORMAL RHYTHM ECG No previous ECG available for comparison MAN us Iva Liu MD ECG ORDERABLES Final Resul t [facility] ([facility] RAD from Last 3 Months Insurance [facility] Care Teams Grain Ii Farmworker Relationship Specialty Start Date End Date None, Provider, PCP - General UNKNOWN PHYSICIAN SPECIALTY 04/17/23
== END 2024-08-13 12:56 | disposition home or self-care (01) ==
PROVIDERS: Emergency Provider Nurse Practitioner Family
DX: S63.502A Unspecified sprain of left wrist, initial encounter (principal); S66.912A Strain of unspecified muscle, fascia and tendon at wrist and hand level, left hand, initial encounter; W00.0XXA Fall on same level due to ice and snow, initial encounter
CPT/HCPCS: 73110; 99213; G0463